=== PATIENT | male | born 1955 | race Caucasian/White ===

== ENCOUNTER 2024-03-16 07:48 | Outpatient (CLI) | payer MEDICARE, MEDICAID | END 2024-03-16 07:49 | disposition home or self-care (01) | LOC: CSHCT 07:48 | PROVIDERS: ATTEND Nurse Practitioner | DX: Z12.2 Encounter for screening for malignant neoplasm of respiratory organs (principal); F17.210 Nicotine dependence, cigarettes, uncomplicated; J98.09 Other diseases of bronchus, not elsewhere classified; J43.9 Emphysema, unspecified; I25.10 Atherosclerotic heart disease of native coronary artery without angina pectoris; I25.84 Coronary atherosclerosis due to calcified coronary lesion | CPT/HCPCS: 71271 ==

== ENCOUNTER 2024-03-25 08:20 | Outpatient (CLI) | payer MEDICARE, MEDICAID | END 2024-03-25 08:21 | disposition home or self-care (01) | LOC: CSHCT 08:20 | PROVIDERS: ATTEND Nurse Practitioner | DX: Z13.6 Encounter for screening for cardiovascular disorders (principal); I71.43 Infrarenal abdominal aortic aneurysm, without rupture; I77.89 Other specified disorders of arteries and arterioles; M85.9 Disorder of bone density and structure, unspecified | CPT/HCPCS: 74175; 82565 ==